=== PATIENT | female | born 1980 | race Caucasian/White ===

== ENCOUNTER 2020-12-17 06:05 | Observation (INO) ==
[2020-12-17] MEDS ORDERED: Naloxone 0.4 MG/ML INJ IVP PRN (10:07)
[2020-12-17] MEDS ORDERED: Ringers Solution, Lactated 1,000 ML IVC ONE (10:11)
[2020-12-17] MEDS ORDERED: Potassium Chloride 40 MEQ, Lidocaine 1% 2 ML in 0.9 % Sodium Chloride 500 ML IVPB ONE (10:11)
[2020-12-17] MEDS ORDERED: Aspirin 325 MG TABLET PO ONE (10:19)
[2020-12-17 11:49] LABS: Magnesium 1.6 mg/dL (1.6-2.6)
[2020-12-17 11:57] LABS: Troponin I < 0.03 ng/mL (< 0.04)
[2020-12-17 13:17] LABS: Adenovirus Not Detected (Not Detect); Bordetella Pertussis Not Detected (Not Detect); Chlamydophila pneumoniae Not Detected (Not Detect); Coronavirus 229E Not Detected (Not Detect); Coronavirus HKU1 Not Detected (Not Detect); Coronavirus NL63 Not Detected (Not Detect); Coronavirus OC43 Not Detected (Not Detect); Human Metapneumovirus Not Detected (Not Detect); Human Rhinovirus/Enterovirus Not Detected (Not Detect); Influenza A Subtype 2009 H1 Not Detected (Not Detect); Influenza B Not Detected (Not Detect); Mycoplasma pneumoniae Not Detected (Not Detect); Parainfluenza Virus 1 Not Detected (Not Detect); Parainfluenza Virus 2 Not Detected (Not Detect); Parainfluenza Virus 3 Not Detected (Not Detect); Parainfluenza Virus 4 Not Detected (Not Detect); Respiratory Syncytial Virus Not Detected (Not Detect); SARS-CoV-2 Not Detected (Not Detect)
[2020-12-17 16:47] LABS: Troponin I < 0.03 ng/mL (< 0.04)
[2020-12-17] MEDS ORDERED: Pantoprazole 40 MG VIAL IVP ONE (17:31)
[2020-12-17 18:16] LABS: BUN/Creatinine Ratio 20 (6-26); Blood Urea Nitrogen 11 mg/dL (6-20); Calcium 8.4 mg/dL (8.6-10.3); Carbon Dioxide 25 mEq/L (23-29); Chloride 107 mEq/L (98-107); Glucose 76 mg/dL (70-105); Osmolality,Calculated 290 (280-300); Potassium 4.1 mEq/L (3.5-5.1); Sodium 141 mEq/L (136-145); eGFR For African Americans > 60 (> 60); eGFR For Non-African Americans > 60 (> 60)
[2020-12-17] MEDS: MetroNIDAZOLE 500 MG/100 ML 500 MG/100 ML BAG IVPB SCH (19:45)
[2020-12-18] MEDS: MetroNIDAZOLE 500 MG/100 ML 500 MG/100 ML BAG IVPB SCH ×3 (02:22→17:20)
[2020-12-18 04:10] LABS: BUN/Creatinine Ratio 16 (6-26); Blood Urea Nitrogen 9 mg/dL (6-20); Calcium 8.6 mg/dL (8.6-10.3); Carbon Dioxide 23 mEq/L (23-29); Chloride 105 mEq/L (98-107); Glucose 69 mg/dL (70-105); Osmolality,Calculated 287 (280-300); Potassium 3.6 mEq/L (3.5-5.1); Sodium 140 mEq/L (136-145); eGFR For African Americans > 60 (> 60); eGFR For Non-African Americans > 60 (> 60)
[2020-12-18 04:15] LABS: Hematocrit 36.4 % (35.3-44.9); Hemoglobin 12.1 g/dL (11.5-15.4); Mean Corpuscular HGB Conc 33.2 g/dL (31.6-35.5); Mean Corpuscular Hemoglobin 31.4 pg (28.0-33.3); Mean Corpuscular Volume 94.5 fL (83.0-100.0); Platelet Count 181 K/mcL (140-400); Red Blood Count 3.85 M/mcL (3.82-4.97); Red Cell Distribution Width 19.1 % (11.5-14.5); White Blood Count 11.7 K/mcL (4.3-11.1)
[2020-12-18] MEDS: *HR* Enoxaparin 40 MG/0.4 ML SYRINGE SQ SCH (05:05)
[2020-12-18] MEDS ORDERED: *HR* Dextrose 50 % in Water (Vial) 50 ML VIAL IVP PRN (05:17)
[2020-12-18] MEDS ORDERED: Dextrose Gel 15 GM/37.5 ML TUBE PO PRN ×2 (05:17)
[2020-12-18] MEDS ORDERED: D5% in Water 1,000 ML IVC PRN (05:17)
[2020-12-18] MEDS: Aspirin 81 MG TAB.CHEW PO SCH (09:22)
[2020-12-18] MEDS: Topiramate 100 MG TABLET PO SCH (22:35)
[2020-12-18] MEDS: QUEtiapine Fumarate 25 MG TABLET PO SCH (22:35)
[2020-12-18] MEDS: tiZANidine 4 MG TABLET PO SCH (22:35)
[2020-12-18] MEDS: Ondansetron 4 MG/2 ML VIAL IVP PRN (22:38)
[2020-12-19] MEDS: MetroNIDAZOLE 500 MG/100 ML 500 MG/100 ML BAG IVPB SCH ×3 (02:50→17:30)
[2020-12-19 03:02] LABS: Basophils % 0.4 %; Eosinophils # 0.1 K/mcL (0.0-0.6); Eosinophils % 1.6 %; Hematocrit 33.3 % (35.3-44.9); Hemoglobin 10.7 g/dL (11.5-15.4); Immature Granulocytes % 0.5 % (0-4); Lymphocytes # 3.9 K/mcL (0.6-4.6); Lymphocytes % 48.4 %; Mean Corpuscular HGB Conc 32.1 g/dL (31.6-35.5); Mean Corpuscular Hemoglobin 30.4 pg (28.0-33.3); Mean Corpuscular Volume 94.6 fL (83.0-100.0); Mean Platelet Volume 10.6 fL (9.4-12.4); Monocytes # 0.6 K/mcL (0.0-1.3); Monocytes % 7.9 %; Neutrophils # 3.3 K/mcL (1.6-8.9); Platelet Count 154 K/mcL (140-400); Red Blood Count 3.52 M/mcL (3.82-4.97); Red Cell Distribution Width 18.3 % (11.5-14.5); Segmented Neutrophils % 41.2 %; White Blood Count 8.1 K/mcL (4.3-11.1)
[2020-12-19 03:23] LABS: BUN/Creatinine Ratio 15 (6-26); Blood Urea Nitrogen 9 mg/dL (6-20); Carbon Dioxide 27 mEq/L (23-29); Chloride 103 mEq/L (98-107); Potassium 3.2 mEq/L (3.5-5.1); Sodium 141 mEq/L (136-145); eGFR For African Americans > 60 (> 60)
[2020-12-19 03:24] LABS: Calcium 8.5 mg/dL (8.6-10.3); Glucose 82 mg/dL (70-105); Osmolality,Calculated 290 (280-300); eGFR For Non-African Americans > 60 (> 60)
[2020-12-19] MEDS: *HR* Enoxaparin 40 MG/0.4 ML SYRINGE SQ SCH (06:22)
[2020-12-19 08:39] LABS: Hematocrit 37.3 % (35.3-44.9); Hemoglobin 11.5 g/dL (11.5-15.4)
[2020-12-19] MEDS ORDERED: NON-FORMULARY MEDICATION 1 EACH EACH (Pantoprazole Sodium [Protonix] 40 MG Tablet.Dr) PO SCH (09:00)
[2020-12-19] MEDS: Topiramate 25 MG TABLET PO SCH (09:53)
[2020-12-19] MEDS: Aspirin 81 MG TAB.CHEW PO SCH (09:53)
[2020-12-19] MEDS: Venlafaxine XR (24 HR) 75 MG CAP.ER.24H PO SCH (09:54)
[2020-12-19] MEDS ORDERED: Potassium Chloride Elixir 20 MEQ/15 ML UDC PO ONE ×2 (12:19→13:45)
[2020-12-19] MEDS ORDERED: Perflutren Lipid Microsphere 1.3 ML in 0.9 % Sodium Chloride 8.7 ML IVP PRN (13:46)
[2020-12-19 16:33] LABS: Amphetamine Screen,Urine Negative ng/mL (Cutoff=1000); Barbiturate Screen,Urine Negative ng/mL (Cutoff=200)
[2020-12-19 16:34] LABS: Benzodiazepines Screen,Urine Negative ng/mL (Cutoff=300); Cannabinoid Screen,Urine Positive ng/mL (Cutoff = 50); Cocaine Screen,Urine Negative ng/mL (Cutoff= 300); Opiate Screen,Urine Negative ng/mL (Cutoff=300); Phencyclidine Screen,Urine Negative ng/mL (Cutoff=25)
[2020-12-19] MEDS: Topiramate 100 MG TABLET PO SCH (22:02)
[2020-12-19] MEDS: QUEtiapine Fumarate 25 MG TABLET PO SCH (22:02)
[2020-12-19] MEDS: tiZANidine 4 MG TABLET PO SCH (22:03)
[2020-12-19] MEDS: Loratadine 10 MG TABLET PO SCH (22:03)
[2020-12-20] MEDS: MetroNIDAZOLE 500 MG/100 ML 500 MG/100 ML BAG IVPB SCH ×3 (02:23→17:21)
[2020-12-20] MEDS: *HR* Enoxaparin 40 MG/0.4 ML SYRINGE SQ SCH (05:01)
[2020-12-20 06:16] LABS: BUN/Creatinine Ratio 11 (6-26); Blood Urea Nitrogen 6 mg/dL (6-20); Carbon Dioxide 24 mEq/L (23-29); Chloride 106 mEq/L (98-107); Glucose 86 mg/dL (70-105); Osmolality,Calculated 283 (280-300); Potassium 3.2 mEq/L (3.5-5.1); Sodium 138 mEq/L (136-145); eGFR For African Americans > 60 (> 60); eGFR For Non-African Americans > 60 (> 60)
[2020-12-20] MEDS: Topiramate 25 MG TABLET PO SCH (09:35)
[2020-12-20] MEDS: Aspirin 81 MG TAB.CHEW PO SCH (09:36)
[2020-12-20] MEDS: Venlafaxine XR (24 HR) 75 MG CAP.ER.24H PO SCH (09:36)
[2020-12-20] MEDS: Potassium Chloride Elixir 20 MEQ/15 ML UDC PO SCH ×2 (10:54→14:05)
[2020-12-20] MEDS ORDERED: Acetaminophen 325 MG TABLET PO PRN (14:51)
[2020-12-20] MEDS: Topiramate 100 MG TABLET PO SCH (21:34)
[2020-12-20] MEDS: QUEtiapine Fumarate 25 MG TABLET PO SCH (21:35)
[2020-12-20] MEDS: tiZANidine 4 MG TABLET PO SCH (21:35)
[2020-12-20] MEDS: Loratadine 10 MG TABLET PO SCH (21:35)
[2020-12-21] MEDS: MetroNIDAZOLE 500 MG/100 ML 500 MG/100 ML BAG IVPB SCH ×3 (02:05→18:34)
[2020-12-21] MEDS: *HR* Enoxaparin 40 MG/0.4 ML SYRINGE SQ SCH (05:29)
[2020-12-21] MEDS: Aspirin 81 MG TAB.CHEW PO SCH (10:15)
[2020-12-21] MEDS: Topiramate 25 MG TABLET PO SCH (10:17)
[2020-12-21] MEDS: Ondansetron 4 MG/2 ML VIAL IVP PRN ×2 (10:18→20:01)
[2020-12-21] MEDS: Venlafaxine XR (24 HR) 75 MG CAP.ER.24H PO SCH (10:18)
[2020-12-21 14:13] LABS: BUN/Creatinine Ratio 11 (6-26); Blood Urea Nitrogen 8 mg/dL (6-20); Calcium 9.1 mg/dL (8.6-10.3); Carbon Dioxide 23 mEq/L (23-29); Chloride 104 mEq/L (98-107); Glucose 98 mg/dL (70-105); Osmolality,Calculated 282 (280-300); Potassium 3.5 mEq/L (3.5-5.1); Sodium 137 mEq/L (136-145); eGFR For African Americans > 60 (> 60); eGFR For Non-African Americans > 60 (> 60)
[2020-12-21] MEDS: Loratadine 10 MG TABLET PO SCH (20:00)
[2020-12-21] MEDS: Topiramate 100 MG TABLET PO SCH (20:00)
[2020-12-21] MEDS: tiZANidine 4 MG TABLET PO SCH (20:00)
[2020-12-21] MEDS: QUEtiapine Fumarate 25 MG TABLET PO SCH (20:00)
[2020-12-22] MEDS: *HR* Enoxaparin 40 MG/0.4 ML SYRINGE SQ SCH (05:02)
[2020-12-22] MEDS: Topiramate 25 MG TABLET PO SCH (07:33)
[2020-12-22] MEDS: Venlafaxine XR (24 HR) 75 MG CAP.ER.24H PO SCH (07:33)
[2020-12-22] MEDS: Aspirin 81 MG TAB.CHEW PO SCH (07:33)
[2020-12-22 10:50] VITALS: BP 120/88
== END 2020-12-22 11:54 | disposition other institution (70) ==
LOC: 2NENU → SUATTDRO 09:31
PROVIDERS: ADMIT Student in an Organized Health Care Education/Training Program; ATTEND Internal Medicine